=== PATIENT | male | born 1960 | race Caucasian/White ===

== ENCOUNTER 2021-05-17 16:13 | Emergency (ER) | payer OTHER ==
[~2021-05-17] VITALS: Ht 177.8 cm; Wt 63.5 kg
[2021-05-17 16:25] VITALS: BP_SYST 142
--- NOTE | 2021-05-17 16:25 | NUR ---
Pt to bed 8 for evaluation.
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
--- NOTE | 2021-05-17 16:52 | NUR ---
JETT ceballos at bedside examining patient.
--- NOTE | 2021-05-17 17:27 | NUR ---
Portable CXR completed at bedside.
--- NOTE | 2021-05-17 17:57 | NUR ---
Pt to CT scan by silvia.
--- NOTE | 2021-05-17 18:10 | NUR ---
Pt back from radiology.
[2021-05-17] MEDS ORDERED: MORPHINE SULFATE 10 MG/ML VIAL IM ONE (18:45)
[2021-05-17] MEDS ORDERED: HYDR-3917 PO ×2 (18:46→18:49)
[2021-05-17] MEDS ORDERED: CYCL10TA24 PO (18:46)
[2021-05-17] MEDS ORDERED: IBUP-1969 PO (18:46)
--- NOTE | 2021-05-17 19:01 | NUR ---
Pt awaiting CT results and disposition.
--- NOTE | 2021-05-17 19:09 | NUR ---
Report given to RENEE Nguyen who will assume care.
--- NOTE | 2021-05-17 20:30 | NUR ---
PT TAKEN TO CT SCAN VIA GURNEY BY RADIOLOGY STAFF.
[2021-05-17 21:00] VITALS: BP_SYST 142
--- NOTE | 2021-05-17 21:00 | NUR ---
Patient given written and verbal discharge instructions and verbalizes understanding. DR.RHEE JETT MORAES discussed with patient the results and treatment provided. Patient in stable condition. ID arm band removed. Rx of FELXRIL, NORCO, IBUPROFEN given. Patient educated on pain management and to follow up with PMD. Pain Scale 0/10. Opportunity for questions provided and answered. Medication side effect fact sheet provided.
== END 2021-05-17 21:00 | disposition home or self-care (01) ==
LOC: SED 16:13
DX: S16.1XXA Strain of muscle, fascia and tendon at neck level, initial encounter (principal); S39.012A Strain of muscle, fascia and tendon of lower back, initial encounter; V49.59XA Passenger injured in collision with other motor vehicles in traffic accident, initial encounter; Y93.89 Activity, other specified; Y92.89 Other specified places as the place of occurrence of the external cause; Y99.8 Other external cause status
CPT/HCPCS: 70450; 71045; 72125; 72131; 76376; 96372; 99284; J2270